=== PATIENT | female | born 1980 | race Hispanic/Latino ===

== ENCOUNTER 2021-05-21 13:07 | Emergency (ER) | payer OTHER ==
[~2021-05-21] VITALS: Ht 170.2 cm; Wt 77.1 kg
[~2021-05-21 13:07] MED LIST: AMOX/K CLAV875 M1 PO; AMOXICILLIN500 MG PO; CEPHALEXIN250 M1; LORTAB 10 PO; MOTRIN200 MG PO; NAPROSYN500 MG PO; NAPROXEN500 MG PO; PRILOSEC40 MG PO; ROBAXIN PO; [UNRECOGNIZED DRUG - OTHER]
[2021-05-21 13:38] VITALS: BP 123/91
[2021-05-21] MEDS ORDERED: METOPROL TAR25 MG PO (13:46)
[2021-05-21 15:02] LABS: URINE BILIRUBIN - DIPSTICK NEGATIVE (NEGATIVE); URINE BLOOD DIPSTICK NEGATIVE (NEGATIVE); URINE COLOR YELLOW; URINE GLUCOSE - DIPSTICK NEGATIVE (NEGATIVE); URINE KETONE NEGATIVE (NEGATIVE); URINE LEUK ESTERASE TRACE (NEGATIVE); URINE PROTEIN - DIPSTICK NEGATIVE (NEG-TRACE); URINE UROBILINOGEN - DIPSTICK 0.2 E.U./dL (0.2)
[2021-05-21 15:08] LABS: HEMATOCRIT 42.7 % (37.0-47.0); HEMOGLOBIN 13.8 g/dl (12.0-16.0); IMMATURE GRANULOCYTES 0.2 % (0.0-5.0); MEAN CELL VOLUME 92.8 fL CALC (80.0-100.0); MEAN CORPUSCULAR HGB CONC 32.3 g/dL CAL (32.0-36.0); NEUT# 3.88 thou/uL (2.00-7.15); RED BLOOD COUNT 4.6 mill/uL (4.20-5.60); RED CELL DISTRI WIDTH 12.7 % (11.5-15.5)
[2021-05-21 15:09] LABS: URINE NITRITE - DIPSTICK NEGATIVE (Negative)
[2021-05-21 15:23] LABS: ALBUMIN 4.4 g/dL (3.2-5.0); ALKALINE PHOSPHATASE 66 u/l (38-126); ANION GAP 11 (6-22 (CALC)); BUN 9 mg/dL (7-17); BUN/CREATININE RATIO 18 (12-20 (CALC)); CARBON DIOXIDE 27 mmol/l (22-30); CHLORIDE 103 mmol/l (95-108); CREATININE 0.5 mg/dL (0.5-1.0); GFR > 60 ML/MIN (>=60 (CALC)); GFR FOR AFR.AMER. > 60 ML/MIN (>=60 (CALC)); POTASSIUM 3.8 mmol/l (3.5-5.1); SODIUM 137 mmol/l (137-146); TOTAL PROTEIN 7.8 g/dL (6.3-8.2)
[2021-05-21 15:24] LABS: BILIRUBIN, TOTAL 0.6 mg/dL (0.0-1.4); SGOT/AST 43 u/l (14-36)
[2021-05-21] MEDS ORDERED: ZPAK PO (15:45)
== END 2021-05-21 17:45 | disposition home or self-care (01) | DRG 179 ==
LOC: ED 13:07
PROVIDERS: Emergency Medicine
DX: U07.1 COVID-19 (principal); I10 Essential (primary) hypertension

== ENCOUNTER 2022-06-20 10:16 | Emergency (ER) | payer OTHER ==
[~2022-06-20] VITALS: Ht 170.2 cm; Wt 72.7 kg
[~2022-06-20 10:16] MED LIST changes: +METOPROL TAR25 MG PO; +ZPAK PO
[2022-06-20] MEDS ORDERED: METHOCARBAMOL500 MG PO (10:33)
[2022-06-20] MEDS ORDERED: MOTRIN800 MG PO (10:53)
[2022-06-20] MEDS ORDERED: AMOX/K CLAV875 M1 PO (10:53)
[2022-06-20 13:52] VITALS: BP 150/87
== END 2022-06-20 13:52 | disposition home or self-care (01) | DRG 605 ==
LOC: ED 10:16
DX: S61.257A Open bite of left little finger without damage to nail, initial encounter (principal); W55.01XA Bitten by cat, initial encounter

== ENCOUNTER 2022-06-27 15:07 | Emergency (ER) | payer OTHER ==
[2022-06-27] VITALS (7 sets, daily range): BP systolic 119–129; BP diastolic 79–89
[~2022-06-27] VITALS: Ht 170.2 cm; Wt 79.5 kg
[~2022-06-27 15:07] MED LIST changes: +METHOCARBAMOL500 MG PO; +MOTRIN800 MG PO
== END 2022-06-27 17:47 | disposition home or self-care (01) | DRG 951 ==
LOC: ED 15:07
DX: Z48.00 Encounter for change or removal of nonsurgical wound dressing (principal)

== ENCOUNTER 2022-07-11 10:54 | Emergency (ER) | payer OTHER ==
[~2022-07-11] VITALS: Ht 160 cm; Wt 71.4 kg
[2022-07-11 10:59] VITALS: BP 135/91
[2022-07-11 11:29] VITALS: BP 135/91
== END 2022-07-11 11:45 | disposition home or self-care (01) | DRG 950 ==
LOC: ED 10:54
PROC: 3E0234Z Introduction of Serum, Toxoid and Vaccine into Muscle, Percutaneous Approach (ICD-10-PCS; principal; 2022-07-11)
DX: S61.451D Open bite of right hand, subsequent encounter (principal); Z23 Encounter for immunization; I10 Essential (primary) hypertension; W55.01XD Bitten by cat, subsequent encounter

== ENCOUNTER 2022-07-18 11:51 | Emergency (ER) | payer OTHER ==
[~2022-07-18] VITALS: Ht 160 cm; Wt 79.5 kg
[2022-07-18 12:43] VITALS: BP 127/84
== END 2022-07-18 12:50 | disposition home or self-care (01) | DRG 951 ==
LOC: ED 11:51
PROC: 3E0234Z Introduction of Serum, Toxoid and Vaccine into Muscle, Percutaneous Approach (ICD-10-PCS; principal; 2022-07-18)
DX: Z23 Encounter for immunization (principal); S61.250D Open bite of right index finger without damage to nail, subsequent encounter; W55.01XD Bitten by cat, subsequent encounter; I10 Essential (primary) hypertension

== ENCOUNTER 2024-04-20 16:09 | Emergency (ER) | payer OTHER ==
[~2024-04-20] VITALS: Ht 160 cm; Wt 74.8 kg
[2024-04-20 17:49] VITALS: BP 175/95
== END 2024-04-20 17:48 | disposition home or self-care (01) | DRG 605 ==
LOC: ED 16:09
DX: S50.01XA Contusion of right elbow, initial encounter (principal); W01.0XXA Fall on same level from slipping, tripping and stumbling without subsequent striking against object, initial encounter; Y92.009 Unspecified place in unspecified non-institutional (private) residence as the place of occurrence of the external cause

== ENCOUNTER 2024-05-20 08:58 | Emergency (ER) | payer OTHER ==
[~2024-05-20] VITALS: Ht 160 cm; Wt 85.1 kg
[2024-05-20 09:03] VITALS: BP 162/99
[2024-05-20 09:15] VITALS: BP 152/90
[2024-05-20] MEDS ORDERED: ACETAMINOPHEN 325 MG/TAB PO ONE (09:20)
[2024-05-20 09:30] LABS: BASO% 0.8 % (0-3); EOS% 1.4 % (0-8); HEMATOCRIT 42.4 % (37.0-47.0); HEMOGLOBIN 13.9 g/dl (12.0-16.0); IMMATURE GRANULOCYTES 0.1 % (0.0-5.0); LYMPH% 34.4 % (15-41); MEAN CELL VOLUME 91.8 fL CALC (80.0-100.0); MEAN CORPUSCULAR HGB 30.1 pG CALC (26.0-32.0); MEAN CORPUSCULAR HGB CONC 32.8 g/dL CAL (32.0-36.0); MONO% 6.9 % (2-13); NEUT# 4.32 thou/uL (2.00-7.15); NEUT% 56.4 % (42-76); RED BLOOD COUNT 4.62 mill/uL (4.20-5.60); RED CELL DISTRI WIDTH 12.9 % (11.5-15.5)
[2024-05-20 09:52] LABS: PROTHROMBIN TIME 9.9 SECONDS (9.0-12.5)
[2024-05-20 09:53] LABS: CREATININE 0.7 mg/dL (0.5-1.0); POTASSIUM 3.7 mmol/l (3.5-5.1)
[2024-05-20] MEDS ORDERED: HYDROcodone/Acetaminophen 1 COMBO TAB PO ONE (10:35)
[2024-05-20] MEDS ORDERED: METHOCARBAMOL500 MG PO (10:50)
[2024-05-20 11:00] VITALS: BP 133/93
== END 2024-05-20 11:28 | disposition home or self-care (01) | DRG 552 ==
LOC: ED 08:58
PROVIDERS: Family Medicine
DX: S13.9XXA Sprain of joints and ligaments of unspecified parts of neck, initial encounter (principal); V53.5XXA Driver of pick-up truck or van injured in collision with car, pick-up truck or van in traffic accident, initial encounter